=== PATIENT | female | born 1990 | race Caucasian/White ===

== ENCOUNTER 2018-04-27 16:57 | Outpatient (REF) | payer MEDICAID, SELFPAY ==
[2018-04-27 19:36] LABS: HCT 43.2 % (36.0-46.0); HGB 14.9 g/dL (12.0-15.5); Mean Corp. HGB Concentration 34.5 g/dL (32.0-36.0); Mean Corpuscular Volume 92.7 fL (80-95); Mean Platelet Volume 10.4 fL (8.0-11.0); Platelet Count 242 x1000/uL (130-400); RBC 4.66 m/cumm (4.00-5.20); White Blood Cell Count 9.63 k/cumm (4.4-10.8)
[2018-04-27 20:04] LABS: Anion Gap 8.9 mmol/L (3-11); BUN 10 mg/dL (7-18); CO2 27.1 mmol/L (21.0-32.0); CREATININE 0.69 mg/dL (0.55-1.02); Calcium 9.1 mg/dL (8.5-10.1); Chloride 108 mmol/L (98-107); Glucose 97 mg/dL (70-100); Potassium 4.1 mmol/L (3.5-5.1); Sodium 144 mmol/L (136-145); TSH 1.55 uIU/mL (0.358-3.74)
[2018-04-30 13:03] LABS: IgA 37 mg/dL (85-499); Interpretation SEE COMMENTS; Tissue Transglutaminase IgA <1.2 U/mL (<4.0)
== END 2018-04-27 17:17 ==
LOC: NCHCN 16:57
PROVIDERS: PCP Physician Assistant; Visit Provider Nurse Practitioner Family
DX: R00.2 Palpitations (principal); R53.83 Other fatigue
CPT/HCPCS: 80048; 82784; 83516; 85027; 84443

== ENCOUNTER 2019-08-15 22:03 | Outpatient (REF) | payer MEDICAID, SELFPAY ==
[2019-08-18 10:29] LABS: Varicella IgG Antibody Positive (See Note)
== END 2019-08-15 22:23 ==
LOC: NCHCN 22:03
PROVIDERS: PCP Physician Assistant; Visit Provider Internal Medicine
DX: Z13.89 Encounter for screening for other disorder (principal)
CPT/HCPCS: 86787; 87798

== ENCOUNTER 2021-07-19 09:01 | Outpatient (REF) | payer MEDICAID, SELFPAY ==
[2021-07-19 19:54] LABS: Abs Immature Grans 0.03 10^3/uL (0.0-0.06); Absolute Basophil Count 0.03 10^3/uL (0.0-0.2); Absolute Eosinophil Count 0.25 10^3/uL (0.0-0.7); Absolute Lymphocyte Count 2.92 10^3/uL (1.2-3.4); Absolute Monocyte Count 0.52 10^3/uL (0.1-0.8); Absolute Neutrophil Count 4.63 10^3/uL (1.2-6.7); Basophils % 0.4; HCT 40.3 % (36.0-46.0); HGB 13.4 g/dL (11.2-15.7); Immature Grans % 0.4; Lymphocytes % 34.8; MCH 31.8 pg (27.0-33.0); MCHC 33.3 % (32.0-36.0); MCV 95.5 fL (80-95); MPV 10.8 fL (8.0-11.0); Monocytes % 6.2; Neutrophils % 55.2; Platelet Count 190 10^3/uL (130-400); RBC 4.22 10^6/uL (3.93-5.22); RDW 13.1 % (11.7-14.6); RDW-SD 46.1 fL; WBC 8.38 10^3/uL (4.4-10.8)
[2021-07-19 20:10] LABS: ALT 25 U/L (14-59); AST 10 U/L (15-37); Albumin 4.3 g/dL (3.4-5.0); Alkaline Phosphatase 82 U/L (46-116); Anion Gap 9.8 mmol/L (3-11); BUN 16 mg/dL (7-18); Bilirubin, Total 0.6 mg/dL (0.2-1.0); CO2 25.2 mmol/L (21.0-32.0); CREATININE 0.6 mg/dL (0.55-1.02); Calcium 8.5 mg/dL (8.5-10.1); Calculated LDL 75 mg/dL (<100); Chloride 109 mmol/L (98-107); Cholesterol 132 mg/dL (<200); Glucose 93 mg/dL (74-106); HDL Cholesterol 51 mg/dL (40-60); Sodium 144 mmol/L (136-145); Total Protein 6.6 g/dL (6.4-8.2); Triglyceride 31 mg/dL (<150)
== END 2021-07-19 09:02 | disposition home or self-care (01) ==
LOC: NCHCN 09:01
PROVIDERS: PCP Physician Assistant; Visit Provider Physician Assistant
DX: R53.83 Other fatigue (principal); R42 Dizziness and giddiness; R00.2 Palpitations; Z13.220 Encounter for screening for lipoid disorders
CPT/HCPCS: 80053; 80061; 85025

== ENCOUNTER 2021-07-26 09:40 | Outpatient (REF) | payer MEDICAID, SELFPAY ==
[2021-07-26 19:38] LABS: TSH (W/Ref FT4) 1.33 uIU/mL (0.36-3.74)
== END 2021-07-26 09:41 | disposition home or self-care (01) ==
LOC: NCHCN 09:40
PROVIDERS: PCP Physician Assistant; Visit Provider Physician Assistant
DX: R00.2 Palpitations (principal)
CPT/HCPCS: 84443

== ENCOUNTER 2022-01-02 17:14 | Outpatient (REF) | payer MEDICAID, SELFPAY ==
[2022-01-02 19:09] LABS: HCT 42.7 % (36.0-46.0); HGB 14.9 g/dL (11.2-15.7); MCH 32.5 pg (27.0-33.0); MCHC 34.9 % (32.0-36.0); MCV 93 fL (80-95); MPV 10.6 fL (8.0-11.0); Platelet Count 203 10^3/uL (130-400); RBC 4.59 10^6/uL (3.93-5.22); RDW 12.3 % (11.7-14.6); RDW-SD 42.4 fL; WBC 7.59 10^3/uL (4.4-10.8)
[2022-01-02 19:17] LABS: C-Reactive Protein < 0.05 mg/dL (0.0-0.3); ESR < 1 mm/hr (0-20)
[2022-01-03 18:55] LABS: Rheumatoid Factor <8.6 IU/mL (<12.0)
[2022-01-05 17:19] LABS: Anaplasma phagocytophilum Negative (Negative); B. miyamotoi PCR Negative (Negative); Babesia divergens/MO-1 Negative (Negative); Babesia duncani Negative (Negative); Babesia microti Negative (Negative); Ehrlichia chaffeensis Negative (Negative); Ehrlichia ewingii/canis Negative (Negative); Ehrlichia muris eauclairensis Negative (Negative)
[2022-01-06 09:51] LABS: Lyme Ab w Rflx to Lyme Confirm Negative (Negative)
[2022-01-06 15:07] LABS: ANA Interpretation Positive (Negative); ANA Titer Pattern 1:80 Homogeneous
== END 2022-01-02 17:15 | disposition home or self-care (01) ==
LOC: NCHCN 17:14
PROVIDERS: PCP Physician Assistant; Visit Provider Nurse Practitioner Family
DX: G89.29 Other chronic pain (principal)
CPT/HCPCS: 85027; 85652; 87798; 86038; 86140; 86431; 86618

== ENCOUNTER 2024-05-05 18:54 | Emergency (ER) | payer MEDICAID, SELFPAY ==
[2024-05-05] VITALS (31 sets, daily range): BP systolic 87–113; BP diastolic 44–79; PULSE 66–98; RESP 12–23; O2SAT 96–100
--- NOTE | 2024-05-05 18:45 | RT.EKG_ITS ---
APPROVED REPORT Exam: Resting ECG Reason for Exam: chest pain Patient Location: E HR:78 bpm ECG Measurements Heart Rate 78 AXIS NE 127 P 61 QRSd 82 QRS 62 QT 349 T 37 QTc 398 Conclusion Sinus rhythm...normal P axis, V-rate 60- 99
--- NOTE | 2024-05-05 19:45 | DI.RAD_ITS ---
Exam(s) XR CHEST 2V PA LATERAL EXAM: XR CHEST 2V PA LATERAL CLINICAL HISTORY: shortness of breath, cough TECHNIQUE: 2D digital imaging was performed of the chest. Two images were obtained. PA and lateral views were obtained. COMPARISON: No exams were available for comparison FINDINGS: MEDIASTINUM: Normal. HEART: Normal. PULMONARY VASCULATURE: Normal. LUNGS: Clear. PLEURAL SPACE: No pleural effusion or pneumothorax. BONE:Within normal limits for the patient's age. OTHER FINDINGS:Normal. IMPRESSION: No acute pulmonary findings. DATA REPOSITORY: RADIATION DOSE DELIVERED:
[2024-05-05 20:18] LABS: Abs Immature Grans 0.01 10^3/uL (0.0-0.06); Absolute Basophil Count 0.03 10^3/uL (0.0-0.2); Absolute Eosinophil Count 0.06 10^3/uL (0.0-0.7); Absolute Lymphocyte Count 2.38 10^3/uL (1.2-3.4); Absolute Monocyte Count 0.45 10^3/uL (0.1-0.8); Absolute Neutrophil Count 4.22 10^3/uL (1.2-6.7); Basophils % 0.4 %; Eosinophils % 0.8 %; HCT 41.3 % (36.0-46.0); HGB 13.9 g/dL (11.2-15.7); Immature Grans % 0.1 %; Lymphocytes % 33.3 %; MCH 32.2 pg (27.0-33.0); MCHC 33.7 % (32.0-36.0); MCV 96 fL (80-95); MPV 9.5 fL (8.0-11.0); Monocytes % 6.3 %; Neutrophils % 59.1 %; Platelet Count 200 10^3/uL (130-400); RBC 4.32 10^6/uL (3.93-5.22); RDW 12.2 % (11.7-14.6); WBC 7.15 10^3/uL (4.4-10.8)
[2024-05-05 20:35] LABS: HCG Qual (Serum) Negative
[2024-05-05 20:37] LABS: Troponin I 7 ng/L (<or=51)
[2024-05-05 20:40] LABS: COVID-19 PCR Negative (Negative); Influenza A PCR Negative (Negative); Influenza B PCR Negative (Negative); RSV PCR Negative (Negative); Source NASOPHARYNX
[2024-05-05 20:41] LABS: ALT 25 U/L (14-59); AST 12 U/L (15-37); Albumin 4.2 g/dL (3.4-5.0); Alkaline Phosphatase 66 U/L (46-116); Anion Gap 3.6 mmol/L (3-11); BUN 6 mg/dL (7-18); Bilirubin, Total 1.36 mg/dL (0.2-1.0); CO2 30.4 mmol/L (21.0-32.0); CREATININE 0.8 mg/dL (0.55-1.02); Calcium 8.8 mg/dL (8.5-10.1); Chloride 109 mmol/L (98-107); Estimated GFR 99.71 (mL/min/1.73m2); Glucose 95 mg/dL (74-106); Lipase 24 U/L (<78); Magnesium 1.9 mg/dL (1.8-2.4); Potassium 3.8 mmol/L (3.5-5.1); Sodium 143 mmol/L (136-145); Total Protein 6.7 g/dL (6.4-8.2)
[2024-05-05 20:46] LABS: D-Dimer 152 ng/mlFEU (<500)
--- NOTE | 2024-05-05 21:31 | DI.VRAD_ITS ---
PROCEDURE INFORMATION: Exam: XR Chest Exam date and time: 05/05/2024 8:56 PM Age: 34 years old Clinical indication: Cough and shortness of breath TECHNIQUE: Imaging protocol: Radiologic exam of the chest. Views: 2 views. COMPARISON: No relevant prior studies available. FINDINGS: Lungs: No alveolar infiltrate. Pleural spaces: No pleural fluid collection. No pneumothorax. Heart/Mediastinum: Normal heart size. Bones/joints: Unremarkable for patient age. IMPRESSION: No active pulmonary disease. Dictated and Authenticated by: Juan Herring MD. Orderin Herberth Amezquita MD
--- OUTSIDE RECORDS SUMMARY | 2024-05-05 21:38 | XMS_ITS | Continuity of Care Document ---
Author Organization [facility] Address [address] [place] [address] Care Team Providers Care Management Retail Intern Name Role Phone [facility] Primary [facility] Physician Encounter [id number] Date(s): 02/02/24 - 02/02/[address] [id number] Discharge Disposition: Home or Self Care Attending Physician: Manjinder Louis Admitting Physician: Manjinder Louis Referring Physician: Manjinder Louis Allergies, Adverse Reactions, Alerts Substance Criticality Severity Reaction Reaction Severity Status EGG Unable to assess criticality Unknown Active acetaminophen-oxycod one Unable to assess criticality Unknown Active Immunizations Given and Recorded Vaccine Date Status Refusal Reason SARS-CoV-2 (COVID-19) mRNA-1273 vaccine 09/06/20 R ecorded influenza virus vaccine, live 01/29/17 Recorded tetanus/diphth/pertuss (Tdap) adult/adol 05/25/15 Recorded tetanus/diphth/pertuss (Tdap) adult/adol 04/20/12 Recorded Procedures Procedure Date Related Diagnosis Body Site Status Due 02/2022 1 02/27/19 Completed 1Pap Due - 02/2022 09/22/06, 10/28/07, 08/10/12, 08/24/15 - WNL; 02/28/19 - Neg Results Laboratory List Name Date D-Dimer 02/02/24 Most recent to oldest [Reference Range]: 1 D Dimer, (Quant.) [0.00-0.50 mg/L] 0.25 mg/L 1 (02/02/24 10:00 AM) 1Interpretive Data: Exclusion of PE: Effective December 24, 2011 a new D-Dimer assay [INNOVANCE] is being implemented, this test has a new reference range <0.50 mg/L FEU. This assay was evaluated in a multi-center study to validate the exclusion of PE using fresh specimens collected from 701 consecutive patients presenting in the ED with suspected PE. Study patients were evaluated using the Wells' rules to estimate high, moderate or low probability of PE, a D-Dimer result of <0.50 mg/L FEU was considered negative and a D-Dimer result >/= 0.50 was considered positive for PE. Social History Social History Type Response Tobacco Current everyday tob acco user Tobacco Use:. 1/2 ppd per day. Sex Female Sex Representation Female (finding) Patient Care team information Care Team Personnel Name: [facility] Position: No Access Member Role: Primary Care Physician Address: [facility] [address] [place] [address]- [facility] Position: Physician Member Role: Informed Provider Address: [address] [place] [address] [place] [address]- Care Team Related Persons Name: BRODERICK SANTOS Name: ALEX SANTOS Insurance Providers Guarantor name: EDNA Inman [facility] Information #: 2 Payer: SELF EMPLOYED Member Number: NA Policy Number: NA
--- OUTSIDE RECORDS SUMMARY | 2024-05-05 21:38 | XMS_ITS | Continuity of Care Document ---
Author Organization [facility] Address [address] [place] [address] Care Team Providers Care Transfer Car Operator Drier Name Role Phone Dali Hood Primary Care Physician Encounter [facility] Date(s): 05/04/24 - 05/04/[address] [address] Encounter Diagnosis Palpitations(Discharge Diagnosis) - 05/04/24 Near syncope(Discharge Diagnosis) - 05/04/24 Discharge Disposition: Home or Self Care Attending Physician: Tayler Roman MD Admitting Physician: Tayler Roman MD Referring Physician: Tayler Roman MD Encounter Type: Emergency Allergies, Adverse Reactions, Alerts Substance Criticality Severity Reaction Reaction Severity Status EGG Unable to assess criticality Unknown Active acetaminophen-oxycod one Unable to assess criticality Unknown Active Assessment and Plan Extracted from: Title:ED Provider Note Author:Juan Alberto Schmitz MD Date:05/04/24 Assessment/Plan 1.??Palpitations??R00.2 2.??Near syncope??R55 Orders: Echocardiogram Complete, 05/04/24 12:58:00 EST, Palpitations, Stop date 05/04/24 12:58:00 EST Event Monitor, 05/04/24, ABEL, Palpitations, Ambulatory, Patient has IV, Order for future visit, Once Patient Education Near-Syncope, Mpmk-[id number] Palpitations Follow Up With When Contact Information Dali Hood FINANCIAL SYSTEMS MANAGER Within 1 week [facility] [address] [place] [address] [place] [address] ?? Additional Instructions: Future Appointments Immunizations Given and Recorded Vaccine Date Status Refusal Reason SARS-CoV-2 (COVID-19) mRNA-0760 vaccine 09/06/20 R ecorded influenza virus vaccine, live 01/29/17 Recorded tetanus/diphth/pertuss (Tdap) adult/adol 05/25/15 Recorded tetanus/diphth/pertuss (Tdap) adult/adol 04/20/12 Recorded Medications Wellbutrin 300 mg =, Oral, Daily, 0 Refill(s) Start Date: 05/04/24 Status: Ordered Repeat number: 1 Procedures Procedure Date Related Diagnosis Body Site Status Due 02/2022 1 02/27/19 Completed 1Pap Due - 02/2022 09/22/06, 10/28/07, 08/10/12, 08/24/15 - WNL; 02/28/19 - Neg Results Laboratory List Name Date CBC w/ Diff 05/04/24 Comprehensive Metabolic Panel 05/04/24 Thyroid Stimulating Hormone (TSH) 5 Troponin-I 05/04/24 Automated Diff 05/04/24 Most recent to oldest [Reference Range]: 1 WBC [5.0-10.0 x10^3/mcL] 5.8 x10^3/mcL (05/04/24 11:49 AM) RBC [4.1-5.3 x10^6/mcL] 4.5 x10^6/mcL (05/04/24 11:49 AM) Neutro Auto [40.0-75.0 %] 63.9 % (05/04/24 11:49 AM) Lymph Auto [20.0-50.0 %] 28.8 % (05/04/24 11:49 AM) [place] Auto [2.0-15.0 %] 6.4 % (05/04/24 11:49 AM) Basophil Auto [0.0-1.0 %] 0.3 % (05/04/24 11:49 AM) BUN [7-18 mg/dL] 8 mg/dL (05/04/24 11:49 AM) Glucose Level [74-106 mg/dL] 104 mg/dL (05/04/24 11:49 AM) Potassium Level [3.5-5.1 mmol/L] 4.4 mmo l/L (05/04/24 11:49 AM) MCV [80.0-96.0 fL] 94.0 fL (05/04/24 11:49 AM) AST [15-37 unit/L] 17 unit/L (05/04/24 11:49 AM) ALT [14-59 unit/L] 23 unit/L (05/04/24 11:49 AM) MCHC [31.0-35.0 g/dL] 34.3 g/dL (05/04/24 11:49 AM) Troponin-I [0.0-51.4 pg/mL] <5.0 pg/mL (05/04/24 11:49 AM) Sodium Level [136-145 mmol/L] 139 mmol/L (05/04/24 11:49 AM) Hct [37.0-47.0 %] 42.0 % (05/04/24 11:49 AM) Calcium Level [8.5-10.1 mg/dL] 8.9 mg/dL (05/04/24 11:49 AM) Albumin Level [3.4-5.0 g/dL] 4.2 g/dL (05/04/24 11:49 AM) Protein Total [6.4-8.2 g/dL] 6.9 g/dL (05/04/24 11:49 AM) MCH [26.0-32.0 pg] 32.2 pg *HI* (05/04/24 11:49 AM) Neutro Absolute 3.7 x10^3/mcL *NA* (05/04/24 11:49 AM) Bilirubin Total [0.2-1.0 mg/dL] 1.8 mg/d L *HI* (05/04/24 11:49 AM) Hgb [12.0-16.0 g/dL] 14.4 g/dL (05/04/24 11:49 AM) Alk Phos [46-146 unit/L] 59 unit/L (05/04/24 11:49 AM) Platelets [130-450 x10^3/mcL] 203 x10^3/ mcL (05/04/24 11:49 AM) CO2 [21-32 mmol/L] 28 mmol/L (05/04/24 11:49 AM) TSH [0.358-3.740 mcIntlUnit/mL] 1.050 mc IntlUnit/mL (05/04/24 11:49 AM) eGFR Non-AA [>=60] 89 (05/04/24 11:49 AM) eGFR AA [>=60] 89 (05/04/24 11:49 AM) Chloride Level [98-107 mmol/L] 105 mmol/ L (05/04/24 11:49 AM) RDW-CV [11.5-14.5 %] 12.3 % (05/04/24 11:49 AM) Imm Gran Auto [0.0-0.9 %] 0.3 % (05/04/24 11:49 AM) Creatinine Level [0.55-1.02 mg/dL] 0.88 mg/dL (05/04/24 11:49 AM) Eos, Auto [1.0-6.0 %] 0.3 % *LOW* (05/04/24 11:49 AM) Vital Signs Most recent to oldest [Reference Range]: 1 2 Temperature Temporal Artery [36-38 Deg C ] 36.5 Deg C (05/04/24 11:27 AM) Peripheral Pulse Rate [60-100 bpm] 87 bp m (05/04/24 12:59 PM) 100 bpm (05/04/24 11:27 AM) Respiratory Rate [12-24 br/min] 22 br/mi n (05/04/24 12:59 PM) 16 br/min (05/04/24 11:27 AM) Blood Pressure [90-120/60-80 mmHg] 104/9 9mmHg (05/04/24 12:59 PM) 114/74mmHg (05/04/24 11:27 AM) Mean Arterial Pressure, Cuff [65-140 mmH g] 87 mmHg (05/04/24 11:27 AM) Weight Estimated 76.20 kg (05/04/24 11:27 AM) Body Mass Index Estimated 28.84 kg/m2 (05/04/24 11:27 AM) Height/Length Estimated 162.56 cm (05/04/24 11:27 AM) Social History Social History Type Response Tobacco Current everyday tob acco user Tobacco Use:. 1/2 ppd per day. Sex Female Sex Representation Female (finding) Hospital Discharge Instructions Patient Education 05/04/2024 12:08:12 Near-Syncope, [id number]-[id number] Near-Syncope Near-syncope is when you suddenly feel like you might pass out or faint. This may also be called presyncope. During an episode of near-syncope, you may: ??? Feel dizzy, weak, or light-headed. It may feel like the room is spinning. ??? Feel like you may vomit (nauseous). ??? See spots or see all white or all black. ??? Have cold, clammy skin. ??? Feel warm and sweaty. ??? Hear ringing in your ears. This condition is caused by a sudden decrease in blood flow to the brain. This can result from manycauses, but most of those causes are not dangerous. However, near-syncope may be a sign of a serious medical problem, so it is important to seek medical care. Follow these instructions at home: Medicines ??? Take hveh-mno-ofuybtj and prescription medicines only as told by your doctor. ??? If you are taking blood pressure or heart medicine, get up slowly and spend many minutes getting ready to sit and then stand. This can help with dizziness. Lifestyle ??? Do not drive, use machinery, or play sports until your doctor says it is okay. ??? Do not drink alcohol. ??? Do not smoke or use any products that contain nicotine or tobacco. If you need help quitting, ask your doctor. ??? Avoid hot tubs and saunas. General instructions ??? Be aware of any changes in your symptoms. ??? Talk with your doctor about your symptoms. You may need to have testing to help find the cause. ??? If you start to feel like you might pass out, sit or lie down right away. If sitting, lower your head down between your legs. If lying down, raise (elevate) your feet above the level of your heart. ??? Breathe deeply and steadily. Wait until all of the symptoms are gone. ??? Have someone stay with you until you feel better. ??? Drink enough fluid to keep your pee (urine) pale yellow. ??? Avoid standing for a long time. If you must stand for a long time, do movements such as: ??? Moving your legs. ??? Crossing your legs. ??? Flexing and stretching your leg muscles. ??? Squatting. ??? Keep all follow-up visits. Contact a doctor if: ??? You continue to have episodes of near fainting. Get help right away if: ??? You pass out or faint. ??? You have any of these symptoms: ??? Fast or uneven heartbeats (palpitations). ??? Pain in your chest, belly, or back. ??? Shortness of breath. ??? You have a seizure. ??? You have a very bad headache. ??? You are confused. ??? You have trouble seeing. ??? You are very weak. ??? You have trouble walking. ??? You are bleeding from your mouth or butt. ??? You have black or tarry poop (stool). These symptoms may be an emergency. Get help right away. Call your local emergency services (911 int [place] ??? Do not wait to see if the symptoms will go away. ??? Do not drive yourself to the hospital. Summary ??? Near-syncope is when you suddenly feel like you might pass out or faint. ??? This condition is caused by a sudden decrease in blood flow to the brain. ??? Near-syncope may be a sign of a serious medical problem, so it is important to seek medical care. ??? If you start to feel like you might pass out, sit or lie down right away. If sitting, lower your head down between your legs. If lying down, raise (elevate) your feet above the level of your heart. ??? Talk with your doctor about your symptoms. You may need to have testing to help find the cause. This information is not intended to replace advice given to you by your health care provider. Make sure you discuss any questions you have with your health care provider. Document Revised: 08/01/2021 Document Reviewed: 08/01/2021 [employer] Patient Education ?? 2022 [employer] 05/04/2024 12:08:06 Palpitations Palpitations Palpitations are feelings that your heartbeat is irregular or is faster than normal. It may feel like your heart is fluttering or skipping a beat. Palpitations may be caused by many things, includingsmoking, caffeine, alcohol, stress, and certain medicines or drugs. Most causes of palpitations arenot serious. However, some palpitations can be a sign of a serious problem. Further tests and a thorough medicalhistory will be done to find the cause of your palpitations. Your provider may order tests such as an ECG, labs, an echocardiogram, or an ambulatory continuous ECG monitor. Follow these instructions at home: Pay attention to any changes in your symptoms. Let your health care provider know about them. Take these actions to help manage your symptoms: Eating and drinking Follow instructions from your health care provider about eating or drinking restrictions. You may need to avoid foods and drinks that may cause palpitations. These may include: ??? Caffeinated coffee, tea, soft drinks, and energy drinks. ??? Chocolate. ??? Alcohol. ??? Diet pills. Lifestyle ??? Take steps to reduce your stress and anxiety. Things that can help you relax include: ??? Yoga. ??? Mind-body activities, such as deep breathing, meditation, or using words and images to create positive thoughts (guided imagery). ??? Physical activity, such as swimming, jogging, or walking. Tell your health care provider if your palpitations increase with activity. If you have chest pain or shortness of breath with activity, do not continue the activity until you are seen by your health care provider. ??? Biofeedback. This is a method that helps you learn to use your mind to control things in your body, such as your heartbeat. ??? Get plenty of rest and sleep. Keep a regular bed time. ??? Do not use drugs, including cocaine or ecstasy. Do not use marijuana. ??? Do not use any products that contain nicotine or tobacco. These products include cigarettes, chewing tobacco, and vaping devices, such as e-cigarettes. If you need help quitting, ask your health care provider. General instructions ??? Take knte-gtx-tvdvtev and prescription medicines only as told by your health care provider. ??? Keep all follow-up visits. This is important. These may include visits for further testing if palpitations do not go away or get worse. Contact a health care provider if: ??? You continue to have a fast or irregular heartbeat for a long period of time. ??? You notice that your palpitations occur more often. Get help right away if: ??? You have chest pain or shortness of breath. ??? You have a severe headache. ??? You feel dizzy or you faint. These symptoms may represent a serious problem that is an emergency. Do not wait to see if the symptoms will go away. Get medical help right away. Call your local emergency services (911 in the [place] Do not drive yourself to the hospital. Summary ??? Palpitations are feelings that your heartbeat is irregular or is faster than normal. It may feel like your heart is fluttering or skipping a beat. ??? Palpitations may be caused by many things, including smoking, caffeine, alcohol, stress, certain medicines, and drugs. ??? Further tests and a thorough medical history may be done to find the cause of your palpitations. ??? Get help right away if you faint or have chest pain, shortness of breath, severe headache, or dizziness. This information is not intended to replace advice given to you by your health care provider. Make sure you discuss any questions you have with your health care provider. Document Revised: 08/14/2021 Document Reviewed: 08/14/2021 [employer] Patient Education ?? 2022 [employer]. Follow Up Care 05/04/2024 11:09:56 With:Dali Hood APRN Address: [facility] [address] [address]- When:1 week Physician Emergency department Note * Juan Alberto Schmitz MD: PERFORM Event Display: ED Note Physician Authored Date: [id number] EDNA JUAREZ :1990 Age:34 years Sex:Female Visit Date:05/04/2024 Primary Care Physician: Dali Hood APRN Basic Information Time Seen: Juan Alberto Schmitz MD / 05/04/2024 11:14 Chief Complaint Pt states she had a near syncopal episode at work [employer]. ??Has had intermittent palpatatgions for 2 months. 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 Patient states that for the last 2 months intermittently??and randomly she would get the sensation of fluttering sensation in her heart.?? She never passed out. ??No chest pain??or shortness of breath??or diaphoresis.?? This morning at rest??she had??spell of palpitation, another nurse at the [facility] facility listen to her heart??and told her it was irregular.?? Eventually subsided on its own about 5 minutes later. ??She felt warm and flushed and felt like she could pass out but she did not.?? No headache.?? No abdominal pain, no URI symptoms or GI symptoms.?? Denies possibility of .?? Because of the spells she has seen her primary care provider??Dali Hood Oralia believe works in [facility] and she was set up for an event monitor on 21 April.?? However after??3 days she took it off because she felt that the device was irritating her skin.?? She did have a few spells when she had a dog but she has not gotten the results yet.?? She is feeling fine here. ??She did not have breakfast but does not unusual for her. ??She had taken some fluids. ??She does not use any caffeine has not taken any cold medicine such as Sudafed.?? She reports??one of her parents has A-fib and is anticoagulated??and is ondiltiazem.?? She also reports she was supposed to be referred to cardiology here to get an echocardiogram??but this has not taken place yet. Review of Systems: Per HPI Physical Exam Vitals & Measurements T:??36.5?C ??(Temporal Artery)?? HR:??87??(Peripheral)?? RR:??22?? BP:??104/99?? SpO2:??97%?? HT:??162.56??cm?? WT:??76.20??kg??(Estimated)?? BMI:??28.84?? O2 Therapy:??Room air?? General:??alert,??no acute distress. Skin:??warm,??dry. Head:??no??trauma,??normocephalic. Neck:??trachea??midline,? Eye:??normal??conjunctiva, sclera??clear. Cardiovascular:??regular??rate and rhythm,??normal??peripheral perfusion.?? No gallop no murmur Respiratory: lungs??CTA, respirations??non-labored. Chest wall:??no??deformity. Gastrointestinal:??soft,??non distended,??no??tenderness,??no??guarding. Extremities:??no??deformity,??no??trauma.?? No swelling no signs of DVT Neurological:?LOC??appropriate for age,?speech??normal. Psychiatric:??cooperative, affect??flat Medical Decision Making: Medical Decision-Making: Clinical lab tests: ordered and reviewed -??Yes ?? Tests in the medicine section of CPT??: ordered and reviewed -??Yes ?? Review and summarize past medical records -??Yes ?? Independent visualization of images, tracings, or specimens? Yes ?? The patient was in normal sinus rhythm throughout her stay in the ER with no recurrent symptoms.?? Differential diagnosis includes paroxysmal A-fib, SVT, PVCs, do not think it is V. tach, she denies any anxiety. ??No signs of electrolyte anomaly.?? Here I put in an order for an echocardiogram that was??a contingency plan from her PCP??she could not tolerate the Zio patch but will try with an event monitor 30-day.?? I put in a follow-up order with cardiology which was also??contingency plan fromher PCP.?? Otherwise discharged in stable condition ?? Last 24 Hours?? Chemistry ? Event Name?? Event Result?? Date/Time?? Sodium Level 139 mmol/L 05/04/24 11:49:04 Potassium Level 4.4 mmol/L 05/04/24 11:49:04 Chloride Level 105 mmol/L 05/04/24 11:49:04 CO2 28 mmol/L 05/04/24 11:49:04 Alk Phos 59 unit/L 05/04/24 11:49:04 AST 17 unit/L 05/04/24 11:49:04 ALT 23 unit/L 05/04/24 11:49:04 BUN 8 mg/dL 05/04/24 11:49:04 Glucose Level 104 mg/dL 05/04/24 11:49:04 Creatinine Level 0.88 mg/dL 05/04/24 11:49:04 eGFR AA 89 05/04/24 11:49:04 eGFR Non-AA 89 05/04/24 11:49:04 Calcium Level 8.9 mg/dL 05/04/24 11:49:04 Protein Total 6.9 g/dL 05/04/24 11:49:04 Albumin Level 4.2 g/dL 05/04/24 11:49:04 Bilirubin Total 1.8 mg/dL??High 05/04/24 11:49:04 Troponin-I <5.0 05/04/24 11:49:04 TSH 1.05 mcIntlUnit/mL 05/04/24 11:49:04 ? Hematology ? Event Name?? Event Result?? Date/Time?? WBC 5.8 x10^3/mcL 05/04/24 11:49:04 RBC 4.5 x10^6/mcL 05/04/24 11:49:04 Hgb 14.4 g/dL 05/04/24 11:49:04 Hct 42 % 05/04/24 11:49:04 MCV 94 fL 05/04/24 11:49:04 MCH 32.2 pg??High 05/04/24 11:49:04 MCHC 34.3 g/dL 05/04/24 11:49:04 RDW-CV 12.3 % 05/04/24 11:49:04 Platelets 203 x10^3/mcL 05/04/24 11:49:04 Neutro Auto 63.9 % 05/04/24 11:49:04 Lymph Auto 28.8 % 05/04/24 11:49:04 [place] Auto 6.4 % 05/04/24 11:49:04 Eos, Auto 0.3 %??Low 05/04/24 11:49:04 Basophil Auto 0.3 % 05/04/24 11:49:04 Imm Gran Auto 0.3 % 05/04/24 11:49:04 Neutro Absolute 3.7 x10^3/mcL 05/04/24 11:49:04 ? Procedure No Qualifying Data Assessment/Plan 1.??Palpitations??R00.2 2.??Near syncope??R55 Orders: Echocardiogram Complete, 05/04/24 12:58:00 EST, Palpitations, Stop date 05/04/24 12:58:00 EST Event Monitor, 05/04/24, ABEL, Palpitations, Ambulatory, Patient has IV, Order for future visit, Once Patient Education Near-Syncope, Ifow-fy-Ueoq Palpitations Follow Up With When Contact Information Dali Hood APRN Within 1 week [facility] [address] [place] [address] [place] [address]- Additional Instructions: Medication Reconciliation Unchanged buPROPion (Wellbutrin)300 Milligrams Oral (given by mouth) every day. Problem List/Past Medical History Ongoing No qualifying data Historical Procedure/Surgical History ???Due 02/2022 (02/28/2019) Allergies EGG acetaminophen-oxycodone Social History Electronic Cigarette/Vaping Electronic Cigarette Use: Never. Sexual Other contraceptive use: Mirena 08/20/20. Tobacco Current everyday tobacco user Tobacco Use:. 1/2 ppd per day. Diagnostic Results ECG EKG shows sinus rhythm??with no ischemic changes. Lab Results CBC and Differential?? LATEST RESULTS?? HISTORICAL RESULTS?? WBC?? 05/04/24 11:49?? 5.8?? 02/23/24?? 7.9?? RBC?? 05/04/24 11:49?? 4.5?? 02/23/24?? 4.4?? Hgb?? 05/04/24 11:49?? 14.4?? 02/23/24?? 14.0?? Hct?? 05/04/24 11:49?? 42.0?? 02/23/24?? 40.4?? MCV?? 05/04/24 11:49?? 94.0?? 02/23/24?? 92.4?? MCH?? 05/04/24 11:49?? 32.2 ??High?? 02/23/24?? 32.0?? MCHC?? 05/04/24 11:49?? 34.3?? 02/23/24?? 34.7?? RDW-CV?? 05/04/24 11:49?? 12.3?? 02/23/24?? 12.4?? Platelets?? 05/04/24 11:49?? 203?? 02/23/24?? 206?? Neutro Auto?? 05/04/24 11:49?? 63.9?? 02/23/24?? 69.8?? Lymph Auto?? 05/04/24 11:49?? 28.8?? 02/23/24?? 23.2?? [place] Auto?? 05/04/24 11:49?? 6.4?? 02/23/24?? 5.3?? Eos, Auto?? 05/04/24 11:49?? 0.3 ??Low?? 02/23/24?? 0.9 ??Low?? Basophil Auto?? 05/04/24 11:49?? 0.3?? 02/23/24?? 0.5?? Imm Gran Auto?? 05/04/24 11:49?? 0.3?? 02/23/24?? 0.3?? Neutro Absolute?? 05/04/24 11:49?? 3.7?? 02/23/24?? 5.5? Routine Chemistry?? LATEST RESULTS?? HISTORICAL RESULTS?? Sodium Level?? 05/04/24 11:49?? 139?? 02/23/24?? 142?? Potassium Level?? 05/04/24 11:49?? 4.4?? 02/23/24?? 4.6?? Chloride Level?? 05/04/24 11:49?? 105?? 02/23/24?? 106?? CO2?? 05/04/24 11:49?? 28?? 02/23/24?? 29?? Alk Phos?? 05/04/24 11:49?? 59?? 02/23/24?? 83?? AST?? 05/04/24 11:49?? 17?? 02/23/24?? 12 ??Low?? ALT?? 05/04/24 11:49?? 23?? 02/23/24?? 22?? BUN?? 05/04/24 11:49?? 8?? 02/23/24?? 9?? Glucose Level?? 05/04/24 11:49?? 104?? 02/23/24?? 84?? Creatinine Level?? 05/04/24 11:49?? 0.88?? 02/23/24?? 0.75?? eGFR AA?? 05/04/24 11:49?? 89?? 02/23/24?? 108?? eGFR Non-AA?? 05/04/24 11:49?? 89?? 02/23/24?? 108?? Calcium Level?? 05/04/24 11:49?? 8.9?? 02/23/24?? 9.3?? Protein Total?? 05/04/24 11:49?? 6.9?? 02/23/24?? 7.1?? Albumin Level?? 05/04/24 11:49?? 4.2?? 02/23/24?? 4.4?? Bilirubin Total?? 05/04/24 11:49?? 1.8 ??High?? 02/23/24?? 1.1 ??High? Cardiac Isoenzymes?? LATEST RESULTS?? Troponin-I?? 05/04/24 11:49?? <5.0? Thyroid Studies?? LATEST RESULTS?? HISTORICAL RESULTS?? TSH?? 05/04/24 11:49?? 1.050?? 01/21/24?? 1.128? Electronically Signed on 05/04/2024 13:09 EST Juan Alberto Schmitz MD Emergency department Discharge instructions * Juan Alberto Schmitz MD: PERFORM Event Display: ED Discharge Information Authored Date: [id number] EDNA JUAREZ :1990 Age:34 years Sex:Female Visit Date:05/04/2024 Primary Care Physician: Dali Hood APRN Discharge Instructions We would like to thank you for allowing us to assist you with your healthcare needs. The following includes patient education materials and information regarding your injury/illness. Diagnosis from Today's Visit Palpitations Near syncope Discharge Vitals Temperature??(Temporal Artery) 97.7 ??F (36.5 ??C) Heart Rate??(Peripheral) 87 Respiratory Rate?? 22 Blood Pressure?? 104/99?? SpO2?? 97% Height?? 64.00 in (162.56 cm) Weight??(Estimated) 168.02 lb (76.20 kg) BMI?? 28.84 Allergies EGG acetaminophen-oxycodone What to Do Next Instructions from Your Care Team The department of cardiology should be calling you to set up an echocardiogram. ??He can also call them at [phone].?? You should also get a call for follow- up with cardiology??Dr. Zafar Gandara.??Wear the event monitor as arranged. You Need to Schedule the Following Appointments Follow Up with??Dali Hood APRN When:??Within 1 week Where: [facility] [address] [place] [address] [place] [address]- Upcoming Scheduled Appointments Thursday 11:15 AM EDT ?? With: Ava Shields TEXTILE BAG SEWER Where: [facility] [address] [place] [address] Status: Confirmed Future Orders Event Monitor, 05/04/24, ABEL, Palpitations, Ambulatory, Patient has IV, Order for future visit, Once You were treated today on an emergency basis; it may be kinsey to contact your primary care provider to notify them of your visit today. You may have been referred to your regular doctor or a specialist, please follow up as instructed. If your condition worsens or you can't get in to see the doctor, contact the Emergency Department. Medications What How Much When Instructions Next Dose Unchanged buPROPion (Wellbutrin) 300 Milligrams Oral (given by mouth) Every day Education Materials Near-Syncope Near-syncope is when you suddenly feel like you might pass out or faint. This may also be called presyncope. During an episode of near-syncope, you may: ? Feel dizzy, weak, or light-headed. It may feel like the room is spinning. ? Feel like you may vomit (nauseous). ? See spots or see all white or all black. ? Have cold, clammy skin. ? Feel warm and sweaty. ? Hear ringing in your ears. This condition is caused by a sudden decrease in blood flow to the brain. This can result from manycauses, but most of those causes are not dangerous. However, near-syncope may be a sign of a serious medical problem, so it is important to seek medical care. Follow these instructions at home: Medicines ? Take uull-wwo-sbxpwdu and prescription medicines only as told by your doctor. ? If you are taking blood pressure or heart medicine, get up slowly and spend many minutes getting ready to sit and then stand. This can help with dizziness. Lifestyle ? Do not drive, use machinery, or play sports until your doctor says it is okay. ? Do not drink alcohol. ? Do not smoke or use any products that contain nicotine or tobacco. If you need help quitting, ask your doctor. ? Avoid hot tubs and saunas. General instructions ? Be aware of any changes in your symptoms. ? Talk with your doctor about your symptoms. You may need to have testing to help find the cause. ? If you start to feel like you might pass out, sit or lie down right away. If sitting, lower your head down between your legs. If lying down, raise (elevate) your feet above the level of your heart. ? Breathe deeply and steadily. Wait until all of the symptoms are gone. ? Have someone stay with you until you feel better. ? Drink enough fluid to keep your pee (urine) pale yellow. ? Avoid standing for a long time. If you must stand for a long time, do movements such as: ? Moving your legs. ? Crossing your legs. ? Flexing and stretching your leg muscles. ? Squatting. ? Keep all follow-up visits. Contact a doctor if: ? You continue to have episodes of near fainting. Get help right away if: ? You pass out or faint. ? You have any of these symptoms: ? Fast or uneven heartbeats (palpitations). ? Pain in your chest, belly, or back. ? Shortness of breath. ? You have a seizure. ? You have a very bad headache. ? You are confused. ? You have trouble seeing. ? You are very weak. ? You have trouble walking. ? You are bleeding from your mouth or butt. ? You have black or tarry poop (stool). These symptoms may be an emergency. Get help right away. Call your local emergency services ([facility] [place] ? Do not wait to see if the symptoms will go away. ? Do not drive yourself to the hospital. Summary ? Near-syncope is when you suddenly feel like you might pass out or faint. ? This condition is caused by a sudden decrease in blood flow to the brain. ? Near-syncope may be a sign of a serious medical problem, so it is important to seek medical care. ? If you start to feel like you might pass out, sit or lie down right away. If sitting, lower your head down between your legs. If lying down, raise (elevate) your feet above the level of your heart. ? Talk with your doctor about your symptoms. You may need to have testing to help find the cause. This information is not intended to replace advice given to you by your health care provider. Make sure you discuss any questions you have with your health care provider. Document Revised: 08/01/2021 Document Reviewed: 08/01/2021 [employer] Patient Education ?? 2022 [employer] Inc. Palpitations Palpitations are feelings that your heartbeat is irregular or is faster than normal. It may feel like your heart is fluttering or skipping a beat. Palpitations may be caused by many things, includingsmoking, caffeine, alcohol, stress, and certain medicines or drugs. Most causes of palpitations arenot serious. However, some palpitations can be a sign of a serious problem. Further tests and a thorough medicalhistory will be done to find the cause of your palpitations. Your provider may order tests such as an ECG, labs, an echocardiogram, or an ambulatory continuous ECG monitor. Follow these instructions at home: Pay attention to any changes in your symptoms. Let your health care provider know about them. Take these actions to help manage your symptoms: Eating and drinking Follow instructions from your health care provider about eating or drinking restrictions. You may need to avoid foods and drinks that may cause palpitations. These may include: ? Caffeinated coffee, tea, soft drinks, and energy drinks. ? Chocolate. ? Alcohol. ? Diet pills. Lifestyle ? Take steps to reduce your stress and anxiety. Things that can help you relax include: ? Yoga. ? Mind-body activities, such as deep breathing, meditation, or using words and images to create positive thoughts (guided imagery). ? Physical activity, such as swimming, jogging, or walking. Tell your health care provider if your palpitations increase with activity. If you have chest pain or shortness of breath with activity, do not continue the activity until you are seen by your health care provider. ? Biofeedback. This is a method that helps you learn to use your mind to control things in your body,such as your heartbeat. ? Get plenty of rest and sleep. Keep a regular bed time. ? Do not use drugs, including cocaine or ecstasy. Do not use marijuana. ? Do not use any products that contain nicotine or tobacco. These products include cigarettes, chewing tobacco, and vaping devices, such as e-cigarettes. If you need help quitting, ask your health careprovider. General instructions ? Take trdj-vqt-xiivvno and prescription medicines only as told by your health care provider. ? Keep all follow-up visits. This is important. These may include visits for further testing if palpitations do not go away or get worse. Contact a health care provider if: ? You continue to have a fast or irregular heartbeat for a long period of time. ? You notice that your palpitations occur more often. Get help right away if: ? You have chest pain or shortness of breath. ? You have a severe headache. ? You feel dizzy or you faint. These symptoms may represent a serious problem that is an emergency. Do not wait to see if the symptoms will go away. Get medical help right away. Call your local emergency services (911 in the [place] Do not drive yourself to the hospital. Summary ? Palpitations are feelings that your heartbeat is irregular or is faster than normal. It may feel like your heart is fluttering or skipping a beat. ? Palpitations may be caused by many things, including smoking, caffeine, alcohol, stress, certain medicines, and drugs. ? Further tests and a thorough medical history may be done to find the cause of your palpitations. ? Get help right away if you faint or have chest pain, shortness of breath, severe headache, or dizziness. This information is not intended to replace advice given to you by your health care provider. Make sure you discuss any questions you have with your health care provider. Document Revised: 08/14/2021 Document Reviewed: 08/14/2021 [employer] Patient Education ?? 2022 [employer]. Tests Performed Lab Test Name Test Result Date/Time WBC 5.8 x10^3/mcL 05/04/2024 11:49 EST RBC 4.5 x10^6/mcL 05/04/2024 11:49 EST Hgb 14.4 g/dL 05/04/2024 11:49 EST Hct 42.0 % 05/04/2024 11:49 EST MCV 94.0 fL 05/04/2024 11:49 EST MCH 32.2 pg 05/04/2024 11:49 EST MCHC 34.3 g/dL 05/04/2024 11:49 EST RDW-CV 12.3 % 05/04/2024 11:49 EST Platelets 203 x10^3/mcL 05/04/2024 11:49 EST Neutro Auto 63.9 % 05/04/2024 11:49 EST Lymph Auto 28.8 % 05/04/2024 11:49 EST [place] Auto 6.4 % 05/04/2024 11:49 EST Eos, Auto 0.3 % 05/04/2024 11:49 EST Basophil Auto 0.3 % 05/04/2024 11:49 EST Imm Gran Auto 0.3 % 05/04/2024 11:49 EST Neutro Absolute 3.7 x10^3/mcL 05/04/2024 11:49 EST Sodium Level 139 mmol/L 05/04/2024 11:49 EST Potassium Level 4.4 mmol/L 05/04/2024 11:49 EST Chloride Level 105 mmol/L 05/04/2024 11:49 EST CO2 28 mmol/L 05/04/2024 11:49 EST Alk Phos 59 unit/L 05/04/2024 11:49 EST AST 17 unit/L 05/04/2024 11:49 EST ALT 23 unit/L 05/04/2024 11:49 EST BUN 8 mg/dL 05/04/2024 11:49 EST Glucose Level 104 mg/dL 05/04/2024 11:49 EST Creatinine Level 0.88 mg/dL 05/04/2024 11:49 EST eGFR AA 89 05/04/2024 11:49 EST eGFR Non-AA 89 05/04/2024 11:49 EST Calcium Level 8.9 mg/dL 05/04/2024 11:49 EST Protein Total 6.9 g/dL 05/04/2024 11:49 EST Albumin Level 4.2 g/dL 05/04/2024 11:49 EST Bilirubin Total 1.8 mg/dL 05/04/2024 11:49 EST Troponin-I <5.0 pg/mL 05/04/2024 11:49 EST TSH 1.050 mcIntlUnit/mL 05/04/2024 11:49 EST Patient/Hedis Specialist Signature Patient Name:EDNA JUAREZ I have received this information and my questions have been answered. Patient/Hedis Specialist Name: Patient/Hedis Specialist Signature: Relationship to Patient: Witness Name/Signature: Date: Electronically Signed on: 05/04/2024 13:24 ESTSigned by:TITUS * Juan Alberto Schmitz MD: PERFORM Event Display: ED Discharge Information Authored Date: [id number] EDNA JUAREZ :1990 Age:34 years Sex:Female Visit Date:05/04/2024 Primary Care Physician: Dali Hood APRN Discharge Instructions We would like to thank you for allowing us to assist you with your healthcare needs. The following includes patient education materials and information regarding your injury/illness. Diagnosis from Today's Visit Palpitations Near syncope Discharge Vitals Temperature??(Temporal Artery) 97.7 ??F (36.5 ??C) Heart Rate??(Peripheral) 87 Respiratory Rate?? 22 Blood Pressure?? 104/99?? SpO2?? 97% Height?? 64.00 in (162.56 cm) Weight??(Estimated) 168.02 lb (76.20 kg) BMI?? 28.84 Allergies EGG acetaminophen-oxycodone What to Do Next Instructions from Your Care Team The department of cardiology should be calling you to set up an echocardiogram. ??He can also call them at [phone].?? You should also get a call for follow- up with cardiology??Dr. Zafar Gandara.??Wear the event monitor as arranged. You Need to Schedule the Following Appointments Follow Up with??Dali Hood APRN When:??Within 1 week Where: [facility] [address] [place] [address] [place] [address]- Upcoming Scheduled Appointments Thursday 11:15 AM EDT ?? With: Ava Shields TEXTILE BAG SEWER Where: [facility] [address] [place] [address] Status: Confirmed Future Orders Event Monitor, 05/04/24, ABEL, Palpitations, Ambulatory, Patient has IV, Order for future visit, Once You were treated today on an emergency basis; it may be kinsey to contact your primary care provider to notify them of your visit today. You may have been referred to your regular doctor or a specialist, please follow up as instructed. If your condition worsens or you can't get in to see the doctor, contact the Emergency Department. Medications What How Much When Instructions Next Dose Unchanged buPROPion (Wellbutrin) 300 Milligrams Oral (given by mouth) Every day Education Materials Near-Syncope Near-syncope is when you suddenly feel like you might pass out or faint. This may also be called presyncope. During an episode of near-syncope, you may: ? Feel dizzy, weak, or light-headed. It may feel like the room is spinning. ? Feel like you may vomit (nauseous). ? See spots or see all white or all black. ? Have cold, clammy skin. ? Feel warm and sweaty. ? Hear ringing in your ears. This condition is caused by a sudden decrease in blood flow to the brain. This can result from manycauses, but most of those causes are not dangerous. However, near-syncope may be a sign of a serious medical problem, so it is important to seek medical care. Follow these instructions at home: Medicines ? Take byip-fst-pmlowry and prescription medicines only as told by your doctor. ? If you are taking blood pressure or heart medicine, get up slowly and spend many minutes getting ready to sit and then stand. This can help with dizziness. Lifestyle ? Do not drive, use machinery, or play sports until your doctor says it is okay. ? Do not drink alcohol. ? Do not smoke or use any products that contain nicotine or tobacco. If you need help quitting, ask your doctor. ? Avoid hot tubs and saunas. General instructions ? Be aware of any changes in your symptoms. ? Talk with your doctor about your symptoms. You may need to have testing to help find the cause. ? If you start to feel like you might pass out, sit or lie down right away. If sitting, lower your head down between your legs. If lying down, raise (elevate) your feet above the level of your heart. ? Breathe deeply and steadily. Wait until all of the symptoms are gone. ? Have someone stay with you until you feel better. ? Drink enough fluid to keep your pee (urine) pale yellow. ? Avoid standing for a long time. If you must stand for a long time, do movements such as: ? Moving your legs. ? Crossing your legs. ? Flexing and stretching your leg muscles. ? Squatting. ? Keep all follow-up visits. Contact a doctor if: ? You continue to have episodes of near fainting. Get help right away if: ? You pass out or faint. ? You have any of these symptoms: ? Fast or uneven heartbeats (palpitations). ? Pain in your chest, belly, or back. ? Shortness of breath. ? You have a seizure. ? You have a very bad headache. ? You are confused. ? You have trouble seeing. ? You are very weak. ? You have trouble walking. ? You are bleeding from your mouth or butt. ? You have black or tarry poop (stool). These symptoms may be an emergency. Get help right away. Call your local emergency services (911 int [place] ? Do not wait to see if the symptoms will go away. ? Do not drive yourself to the hospital. Summary ? Near-syncope is when you suddenly feel like you might pass out or faint. ? This condition is caused by a sudden decrease in blood flow to the brain. ? Near-syncope may be a sign of a serious medical problem, so it is important to seek medical care. ? If you start to feel like you might pass out, sit or lie down right away. If sitting, lower your head down between your legs. If lying down, raise (elevate) your feet above the level of your heart. ? Talk with your doctor about your symptoms. You may need to have testing to help find the cause. This information is not intended to replace advice given to you by your health care provider. Make sure you discuss any questions you have with your health care provider. Document Revised: 08/01/2021 Document Reviewed: 08/01/2021 [employer] Patient Education ?? 2022 [employer] Palpitations Palpitations are feelings that your heartbeat is irregular or is faster than normal. It may feel like your heart is fluttering or skipping a beat. Palpitations may be caused by many things, includingsmoking, caffeine, alcohol, stress, and certain medicines or drugs. Most causes of palpitations arenot serious. However, some palpitations can be a sign of a serious problem. Further tests and a thorough medicalhistory will be done to find the cause of your palpitations. Your provider may order tests such as an ECG, labs, an echocardiogram, or an ambulatory continuous ECG monitor. Follow these instructions at home: Pay attention to any changes in your symptoms. Let your health care provider know about them. Take these actions to help manage your symptoms: Eating and drinking Follow instructions from your health care provider about eating or drinking restrictions. You may need to avoid foods and drinks that may cause palpitations. These may include: ? Caffeinated coffee, tea, soft drinks, and energy drinks. ? Chocolate. ? Alcohol. ? Diet pills. Lifestyle ? Take steps to reduce your stress and anxiety. Things that can help you relax include: ? Yoga. ? Mind-body activities, such as deep breathing, meditation, or using words and images to create positive thoughts (guided imagery). ? Physical activity, such as swimming, jogging, or walking. Tell your health care provider if your palpitations increase with activity. If you have chest pain or shortness of breath with activity, do not continue the activity until you are seen by your health care provider. ? Biofeedback. This is a method that helps you learn to use your mind to control things in your body,such as your heartbeat. ? Get plenty of rest and sleep. Keep a regular bed time. ? Do not use drugs, including cocaine or ecstasy. Do not use marijuana. ? Do not use any products that contain nicotine or tobacco. These products include cigarettes, chewing tobacco, and vaping devices, such as e-cigarettes. If you need help quitting, ask your health careprovider. General instructions ? Take htas-txa-jwxqkfg and prescription medicines only as told by your health care provider. ? Keep all follow-up visits. This is important. These may include visits for further testing if palpitations do not go away or get worse. Contact a health care provider if: ? You continue to have a fast or irregular heartbeat for a long period of time. ? You notice that your palpitations occur more often. Get help right away if: ? You have chest pain or shortness of breath. ? You have a severe headache. ? You feel dizzy or you faint. These symptoms may represent a serious problem that is an emergency. Do not wait to see if the symptoms will go away. Get medical help right away. Call your local emergency services (911 in the [place] Do not drive yourself to the hospital. Summary ? Palpitations are feelings that your heartbeat is irregular or is faster than normal. It may feel like your heart is fluttering or skipping a beat. ? Palpitations may be caused by many things, including smoking, caffeine, alcohol, stress, certain medicines, and drugs. ? Further tests and a thorough medical history may be done to find the cause of your palpitations. ? Get help right away if you faint or have chest pain, shortness of breath, severe headache, or dizziness. This information is not intended to replace advice given to you by your health care provider. Make sure you discuss any questions you have with your health care provider. Document Revised: 08/14/2021 Document Reviewed: 08/14/2021 [employer] Patient Education ?? 2022 [employer]. Tests Performed Lab Test Name Test Result Date/Time WBC 5.8 x10^3/mcL 05/04/2024 11:49 EST RBC 4.5 x10^6/mcL 05/04/2024 11:49 EST Hgb 14.4 g/dL 05/04/2024 11:49 EST Hct 42.0 % 05/04/2024 11:49 EST MCV 94.0 fL 05/04/2024 11:49 EST MCH 32.2 pg 05/04/2024 11:49 EST MCHC 34.3 g/dL 05/04/2024 11:49 EST RDW-CV 12.3 % 05/04/2024 11:49 EST Platelets 203 x10^3/mcL 05/04/2024 11:49 EST Neutro Auto 63.9 % 05/04/2024 11:49 EST Lymph Auto 28.8 % 05/04/2024 11:49 EST Cayuga Auto 6.4 % 05/04/2024 11:49 EST Eos, Auto 0.3 % 05/04/2024 11:49 EST Basophil Auto 0.3 % 05/04/2024 11:49 EST Imm Gran Auto 0.3 % 05/04/2024 11:49 EST Neutro Absolute 3.7 x10^3/mcL 05/04/2024 11:49 EST Sodium Level 139 mmol/L 05/04/2024 11:49 EST Potassium Level 4.4 mmol/L 05/04/2024 11:49 EST Chloride Level 105 mmol/L 05/04/2024 11:49 EST CO2 28 mmol/L 05/04/2024 11:49 EST Alk Phos 59 unit/L 05/04/2024 11:49 EST AST 17 unit/L 05/04/2024 11:49 EST ALT 23 unit/L 05/04/2024 11:49 EST BUN 8 mg/dL 05/04/2024 11:49 EST Glucose Level 104 mg/dL 05/04/2024 11:49 EST Creatinine Level 0.88 mg/dL 05/04/2024 11:49 EST eGFR AA 89 05/04/2024 11:49 EST eGFR Non-AA 89 05/04/2024 11:49 EST Calcium Level 8.9 mg/dL 05/04/2024 11:49 EST Protein Total 6.9 g/dL 05/04/2024 11:49 EST Albumin Level 4.2 g/dL 05/04/2024 11:49 EST Bilirubin Total 1.8 mg/dL 05/04/2024 11:49 EST Troponin-I <5.0 pg/mL 05/04/2024 11:49 EST TSH 1.050 mcIntlUnit/mL 05/04/2024 11:49 EST Patient/Hedis Specialist Signature Patient Name:ANN EDNA M I have received this information and my questions have been answered. Patient/Hedis Specialist Name: Patient/Hedis Specialist Signature: Relationship to Patient: Witness Name/Signature: Date: Electronically Signed on: 05/04/2024 13:08 ESTSigned by:[facility] Cardiology * Nubia Ly SYRUP SHED SUPERVISOR: PERFORM Event Display: Event Monitor Authored Date: [id number] * Nubia Ly SYRUP SHED SUPERVISOR: PERFORM Event Display: Event Monitor Authored Date: [id number] EDNA JUAREZ 1990 [id number] Patient placed on a [employer] Event Monitor for 30 days on 05/04/2024. Electronically Signed on 05/04/2024 13:44 EST Nubia Ly SYRUP SHED SUPERVISOR Patient Care team information Care Team Personnel Name: Sidney Burgess MD Position: Physician Member Role: Informed Provider Address: [address] [place] [address] [place], [place] [address] Telecom: Name: Dali Hood APRN Position: No Access Member Role: Primary Care Physician Address: [address] [place], [place] [address] Telecom: Care Team Related Persons Name: HEIDY BERRY Name: BRODERICK SANTOS Insurance Providers Guarantor name: EDNA JUAREZ Health Plan Information #: 1 Payer: [employer] [facility] Member Number: [id number] Policy Number: NA Group Number: [id number] Health Plan Information #: 2 Payer: [employer] [facility] Member Number: [id number] Policy Number: NA Group Number: NA Health Plan Information #: 3 Payer: SELF EMPLOYED Member Number: NA Policy Number: NA Group Number: NA
--- OUTSIDE RECORDS SUMMARY | 2024-05-05 21:38 | XMS_ITS | Continuity of Care Document ---
Author Organization [facility] Address [address] [place] [address] Care Team Providers Care Hearing Impaired Itinerant Teacher Name Role Phone Sidney Marmolejo Primary Care Physician Encounter [facility] Date(s): 11/17/23 - 11/17/[address] [address] Discharge Disposition: Home or Self Care Attending Physician: Dali Hood APRN Admitting Physician: Dali Hood APRN Referring Physician: Dali Hood APRN Allergies, Adverse Reactions, Alerts Substance Reaction Severity Status EGG Unknown Active acetaminophen-oxycodone Unknown Acti ve Assessment and Plan Future Appointments Immunizations Given and Recorded Vaccine Date Status Refusal Reason SARS-CoV-2 (COVID-19) mRNA-1273 vaccine 09/06/20 R ecorded influenza virus vaccine, live 01/29/17 Recorded tetanus/diphth/pertuss (Tdap) adult/adol 05/25/15 Recorded tetanus/diphth/pertuss (Tdap) adult/adol 04/20/12 Recorded Procedures Procedure Date Related Diagnosis Body Site Status Due 02/2022 1 02/27/19 Completed 1Pap Due - 02/2022 09/22/06, 10/28/07, 08/10/12, 08/24/15 - WNL; 02/28/19 - Neg Social History Social History Type Response Tobacco Current everyday tob acco user Tobacco Use:. 1/2 ppd per day. Sex Female Patient Care team information Care Team Personnel Name: Sidney Marmolejo MD Position: No Access Member Role: Primary Care Physician Address: Address: [facility] [address] [place], [place] [address] Care Team Related Persons Name: BRODERICK SANTOS Address: [address] [place] [address] Address: [address]ailing [address] [place] [address] Name: ALEX SATNOS Address: [address] [place] [address] [facility] [address] [place] [address]
--- OUTSIDE RECORDS SUMMARY | 2024-05-05 21:38 | XMS_ITS | Continuity of Care Document ---
Author Organization [facility] Address [address] [place] [address] Care Team Providers Care Central Office Associate Name Role Phone Dali Hood Primary Care Physician [phone] Encounter [facility] Date(s): 04/08/24 - 04/08/[address] [address] Discharge Disposition: Home or Self Care Attending Physician: Dali Hood APRN Admitting Physician: Dali Hood APRN Referring Physician: Dali Hood APRN Encounter Type: Outpatient Allergies, Adverse Reactions, Alerts Substance Criticality Severity Reaction Reaction Severity Status EGG Unable to assess criticality Unknown Active acetaminophen-oxycod one Unable to assess criticality Unknown Active Assessment and Plan Future Appointments Immunizations Given [...] Position: Physician Member Role: Informed Provider Address: [address] [place] [address]- [place] Telecom: Name: Dali Hood APRN Position: No Access Member Role: Primary Care Physician Address: [facility] [address] [address]- [place] Telecom: Care Team Related Persons Name: BRODERICK SANTOS Insurance Providers Guarantor name: EDNA JUAREZ Health Plan Information #: 1 Payer: [facility] Member Number: [id number] Policy Number: NA Group Number: [id number] Health Plan Information #: 2 Payer: [facility] Member Number: [id number] Policy Number: NA Group Number: NA Health Plan Information #: 3 Payer: SELF EMPLOYED Member Number: NA Policy Number: NA Group Number: NA
--- OUTSIDE RECORDS SUMMARY | 2024-05-05 21:38 | XMS_ITS | Continuity of Care Document ---
Author Organization [facility] Address [address] [place] [address] Care Team Providers Care Tank Refinisher Name Role Phone Dali Hood Primary Care Physician [phone] [facility] [id number] Date(s): 03/22/24 - 03/22/24 [facility] [address] [place] [address] Encounter Type: History Allergies, Adverse Reactions, Alerts Substance Criticality Severity [...] Role: Informed Provider Address: [address] [place] [address] [place] Telecom: Name: Dali Hood APRN Position: No Access Member Role: Primary Care Physician Address: [place] [address] [place] [address]- [place] Telecom: Care Team Related Persons Name: BRODERICK SANTOS Name: ALEX SANTOS Insurance Providers Guarantor name: EDNA [facility] Plan Information #: 1 Payer: SELF EMPLOYED Member Number: NA Policy Number: NA Group Number: NA
--- OUTSIDE RECORDS SUMMARY | 2024-05-05 21:38 | XMS_ITS | Continuity of Care Document ---
Author Organization [facility] Address [address] [place] [address] Care Team Providers Care Machine Joiner Cementer Name Role Phone au [facility], Sidney Boyd Primary Care Physician Encounter [facility] Date(s): 02/23/24 - 02/23/[address] [address] Discharge Disposition: Home or Self Care Attending Physician: Dali Hood APRN Admitting Physician: Dali Hood APRN Referring Physician: Dali Hood APRN Allergies, Adverse Reactions, Alerts Substance Criticality Severity [...] - Neg Results Laboratory List Name Date Automated Diff 02/23/24 Bilirubin Direct 02/23/24 CBC w/ Diff 02/23/24 Comprehensive Metabolic Panel 02/23/24 GGT 02/23/24 HIV 1/2 Ag and Ab, 4th Generation [facility] Most recent to oldest [Reference Range]: 1 WBC [5.0-10.0 x10^3/mcL] 7.9 x10^3/mcL (02/23/24 6:20 AM) RBC [4.1-5.3 x10^6/mcL] 4.4 x10^6/mcL (02/23/24 6:20 AM) Neutro Auto [40.0-75.0 %] 69.8 % (02/23/24 6:20 AM) Lymph Auto [20.0-50.0 %] 23.2 % (02/23/24 6:20 AM) [place]high Auto [2.0-15.0 %] 5.3 % (02/23/24 6:20 AM) Basophil Auto [0.0-1.0 %] 0.5 % (02/23/24 6:20 AM) BUN [7-18 mg/dL] 9 mg/dL (02/23/24 6:20 AM) Glucose Level [74-106 mg/dL] 84 mg/dL (02/23/24 6:20 AM) Potassium Level [3.5-5.1 mmol/L] 4.6 mmo l/L (02/23/24 6:20 AM) MCV [80.0-96.0 fL] 92.4 fL (02/23/24 6:20 AM) AST [15-37 unit/L] 12 unit/L *LOW* (02/23/24:20 AM) ALT [14-59 unit/L] 22 unit/L (02/23/24 6:20 AM) MCHC [31.0-35.0 g/dL] 34.7 g/dL (02/23/24 6:20 AM) Sodium Level [136-145 mmol/L] 142 mmol/L (02/23/24 6:20 AM) Hct [37.0-47.0 %] 40.4 % (02/23/24 6:20 AM) Calcium Level [8.5-10.1 mg/dL] 9.3 mg/dL (02/23/24 6:20 AM) Albumin Level [3.4-5.0 g/dL] 4.4 g/dL (02/23/24 6:20 AM) Protein Total [6.4-8.2 g/dL] 7.1 g/dL (02/23/24 6:20 AM) MCH [26.0-32.0 pg] 32.0 pg (02/23/24 6:20 AM) Neutro Absolute 5.5 x10^3/mcL *NA* (02/23/24 6:20 AM) Bilirubin Total [0.2-1.0 mg/dL] 1.1 mg/d L *HI* (02/23/24 6:20 AM) Hgb [12.0-16.0 g/dL] 14.0 g/dL (02/23/24 6:20 AM) Alk Phos [46-146 unit/L] 83 unit/L (02/23/24 6:20 AM) Bilirubin Direct [0.00-0.20 mg/dL] 0.20 mg/dL (02/23/24 6:20 AM) Platelets [130-450 x10^3/mcL] 206 x10^3/ mcL (02/23/24 6:20 AM) CO2 [21-32 mmol/L] 29 mmol/L (02/23/24 6:20 AM) GGT [5-55 unit/L] 11 unit/L (02/23/24 6:20 AM) eGFR Non-AA [>=60] 108 (02/23/24 6:20 AM) eGFR AA [>=60] 108 (02/23/24 6:20 AM) Chloride Level [98-107 mmol/L] 106 mmol/ L (02/23/24 6:20 AM) RDW-CV [11.5-14.5 %] 12.4 % (02/23/24 6:20 AM) Imm Gran Auto [0.0-0.9 %] 0.3 % (02/23/24 6:20 AM) Creatinine Level [0.55-1.02 mg/dL] 0.75 mg/dL (02/23/24 6:20 AM) HIV 1 and 2 Ab/p24 Ag, 4th Gen [facility] [Nega tive] Negative 1 *NA* (02/23/24 6:20 AM) Eos, Auto [1.0-6.0 %] 0.9 % *LOW* (02/23/24 6:20 AM) 1Result Comment: If acute HIV-1 infection is suspected in a high risk patient, submit plasma specimen for HIV-1 RNA quantitation test. Fourth Generation assay performed on the Siemens Centaur XPT. Test performed [place] [address] Social History Social History Type Response Tobacco Current everyday tob acco user Tobacco Use:. 1/2 ppd per day. Sex Female Sex Representation Female (finding) Patient Care team information Care Team Personnel Name: [facility] Position: No Access Member Role: Primary Care Physician Address: [place] [address]- Name: Subhash [facility] Position: Physician Member Role: Informed Provider Address: [address] [place] [address] [place] [address]- [place] Care Team Related Persons Name: BRODERICK SANTOS Name: ALEX SANTOS Insurance Providers Guarantor name: EDNA JUAREZ Health Plan Information #: 2 Payer: SELF EMPLOYED Member Number: NA Policy Number: NA
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
--- OUTSIDE RECORDS SUMMARY | 2024-05-05 21:38 | XMS_ITS | Continuity of Care Document ---
Author Organization [facility], Dali Hood Address [address] [facility] [address] [address] Assessment Encounter Date Assessment Date Assessment LastModified by Organization Details LastModified Time 04/19/2024 04/19/2024 - palpitations: The patient reports [...] >45 minutes performing evaluation and medication management. [email or web address] Not available 04/19/2024 17:45:47 Plan of Treatment Reminders Order Date Submit Date Provider Last Modified By Organization Details Last Modified Time Details Appointments PSYCHIATR Y FOLLOWUP 30 2024 04:30P M Dali Hood, UNSTACKER, WEB SITE ADMIN-C, PMHNP-C, DNP Not available Not available Not available Lab None recorded. Referral None recorded. Procedures None recorded. Surgeries None recorded. Imaging holter monitor - 14 days monitorin g for palpitati on/flutte rs 2024 025 [facility], [address] [place] [address] , [place], [address], 04/19/2024 17:48:26 Medication Orders propranol ol 10 mg tablet 2024 025 [employer] [facility] [address], [address] [facility], [place], [address], 04/19/2024 17:46:18 bupropion HCl SR 150 mg tablet,12 hr sustained -release 2024 025 [employer] [address], [address] [facility], [place], [address], 04/19/2024 17:46:18 Concerta 36 mg tablet,ex tended release 2024 025 [employer] [address], [address] [facility], [place], [address], 04/19/2024 17:46:31 Patient TargetsNo targets recorded. Patient Instructions Encounter Date Encounter Id Patient Instructions Last Modified By Organization Details Last Modified Time 04/19/2024 469 - Continue takin g your [...] Not available 04/19/2024 17:38:06 Reason for Referral None Reported. Results Created Date Observation Date Name Description Value Unit Range Abnormal Flag Note LastModifiedBy Organization Detail LastModifiedTime 04/11/19 25 04/08/2024 cecil AVALOS x, abdom en, compl ete No observ ation record ed. BARCODE Not Available 2024 11:12:47 04/11/19 25 04/08/2024 rachid AVALOSle x, abdom en, compl ete No observ ation record ed. BARCODE Not Available 2024 11:52:46 Result Notes None recorded. Problems Name Problem SNOMED Code Status Onset Date Resolution Date Notes Provider Name and Address Organization Details Recorded Time Proteinuria 32086251 Active [address] [place], [address], [facility] 12:17:46 Mild depression 050185556 Active [address] [place], [address], [facility] 12:17:55 Body mass index 30+ - obesity 079861186 Active [address] [place], [address], [facility] 12:18:12 Frequent headache 817080815 Active [address] [place], [address], [place] [facility] 12:18:20 Attention deficit hyperactivity disorder 321514436 Active [address] [facility] [place], [address], [place] - [facility] 12:18:39 Atrial fibrillation 85421638 Active 2024 Dali Hood APRN, WEB SITE ADMIN-C, PMHNP-C, DNP Eh [address] [facility] [place], [address], [facility] 5 17:35:40 Palpitations 45704959 Active 2023 Dali Hood APRN, WEB SITE ADMIN-C, PMHNP-C, [place] [address] [place], [address], [facility] 10:00:59 Problem Notes None recorded. Medical Equipment None Reported. [...] Not Available Not Available Not Available Vitals None Recorded Social History None recorded. Functional Status None recorded. Mental Status None recorded. Family History Nothing Reported. Medical History No medical history recorded. Gynecological HistoryNo gynecological history recorded. Obstetrics History GPAL:G 0 P 0 0 0 0 Past Encounters Encounter ID Performer Location Encounter Start Date Encounter Closed Date Diagnosis/Indication Diagnosis SNOMED-CT Code Diagnosis ICD10 Code Diagnosis Note 167 Dali Hood APRN, WEB SITE ADMIN-C, PMHNP-C, DNP Dali Hood [address] [place] [address] 2024 09:03:17 2024 09:49:43 Right upper quadrant pain 415976742 R10.11 Order amylase and lipase tests to rule out pancreatit is. Monitor symptoms and ensure proper hydration. Sleep apnea 63581147 G47 .30 Referral to sleep clinic for evaluation of possible central sleep apnea. Consider CPAP therapy to improve oxygenatio n during sleep. Attention deficit hyperactivity disorder 259985296 F90.9 - The Concerta prescripti on has been renewed today with caution following recent episodes of palpitatio ns. She has been advised to stop taking it if her symptoms persist or worsen, or to hold off until she can be evaluated by Dr. Gandara at . She agrees with this plan. Mild depression 32132749 3 F32.A Mood is mild stable on current medication (Wellbutri n SR 150mg Bid.). Patient denies SI, HI, intention or plan. Palpitations 20711696 R0 0.2 2/6 grade systolic murmur heard best at the 5th intercosta l. Referral to cardiologi st ordered. Patient is agreeable with the plan. 469 Dali Hood, UNSTACKER, WEB SITE ADMIN-C, PMHNP-C, DNP Dali Hood [address] [place] [address] ,[address] [place] [address] 04/19/2024 15:58:26 04/19/2024 16:32:50 Atrial fibrillation 53446784 I48.91 Initiate a beta ghazala at 10 mg as needed for palpitatio ns, with parameters to avoid if systolic blood pressure is less than 100 or pulse is less than 60. Order an echocardio gram and a Holter monitor to assess heart rhythm and rule out atrial fibrillati on. Attention deficit hyperactivity disorder 221104017 F90.9 - The Concerta prescripti on has been renewed today with caution following recent episodes of palpitatio ns. She has been advised to stop taking it if her symptoms persist or worsen, or to hold off until she can be evaluated by Dr. Gandara at . She agrees with this plan. Mild depression 88531946 3 F32.A Mood is mild stable on current medication (Wellbutri n SR 150mg Bid.). Patient denies SI, HI, intention or plan. Health Concerns Section Related Observation LastModified by Organization Detai ls LastModified Time None Recorded Concern Status LastModified by Organization Details LastModified Time None Recorded Payers Encounter Date Sequence Insurance Name Policy Number Policy Rod Covered Member ID Rod Member ID Guarantor Name 04/19/2024 1 [facility]: [facility] [id number] Madalyn Red [id number] Madalyn Red Notes Date Note Type Note Provider Name and Address Organization Details Recorded Time 04/19/2024 text/html Experiencing palpitations that occur both [...] plateaued at 164.6 pounds. Dali Hood APRN, WEB SITE ADMIN-C, PMHNP-C, DNP [address] [facility] , [place], [address], [facility] 04/19/2024 17:46:44 OBGyn Episode No OBEpisode recorded.
--- OUTSIDE RECORDS SUMMARY | 2024-05-05 21:38 | XMS_ITS | Continuity of Care Document ---
Author Organization [facility] Address [address] [place] [address] Care Team Providers Care Car Oiler Name Role Phone Dali Hood Primary Care Physician Encounter [facility] Date(s): 05/04/24 - 05/04/24 [facility] [address] [place] [address] Discharge Disposition: Home Encounter Type: Between Visit Allergies, Adverse Reactions, Alerts Substance Criticality Severity Reaction Reaction Severity Status EGG Unable to assess criticality Unknown Active acetaminophen-oxycod one Unable to assess criticality Unknown Active Assessment and Plan Future Appointments Immunizations Given and Recorded Vaccine Date Status Refusal Reason SARS-CoV-2 (COVID-19) mRNA-8583 vaccine 09/06/20 R ecorded influenza virus vaccine, [...] Care team information Care Team Personnel Name: [facility], [place] Oliver MD Position: Physician Member Role: Informed Provider Address: [address] [place] [address] [place] Tele[employer]: Name: Dali Hood APRN Position: No Access Member Role: Primary Care Physician Address: [place] [address] [place] [address]- Telecom: Care Team Related Persons Name: HEIDY BERRY Name: BRODERICK SANTOS Insurance Providers Guarantor name: EDNA JUAREZ Health Plan Information #: 1 Payer: [facility] Member Number: NA Policy Number: NA Group Number: NA Health Plan Information #: 2 Payer: SELF EMPLOYED Member Number: NA Policy Number: NA Group Number: NA
--- OUTSIDE RECORDS SUMMARY | 2024-05-05 21:38 | XMS_ITS | Continuity of Care Document ---
Author Organization [facility] Address [address] [place] [address] Care Team Providers Care Corporate Bond Trader Name Role Phone Dali Hood Primary Care Physician [phone] Encounter [facility] Date(s): 04/21/24 - 04/21/[address] [address] Discharge Disposition: Home or Self Care Attending [...] day. Sex Female Sex Representation Female (finding) Cardiology * Nubia Ly [employer]ENA[employer] MARINE: PERFORM Event Display: Event Monitor Authored Date: [id number] EDNA JUAREZ 1990 [id number] Patient placed on Zio Event Monitor 14 days on 04/21/24. Electronically Signed on 04/21/2024 08:08 EST Nubia Ly [employer] Patient Care team information Care Team Personnel Name: [place] Burgess MD Position: Physician Member Role: Informed Provider Address: [address] [place] [address] [place] [address] Telecom: Name: Dali Hood APRN Position: No Access Member Role: Primary Care Physician Address: [address] [place], [place] [address] Telecom: Care Team Related Persons Name: BRODERICK SANTOS Insurance Providers Guarantor name: EDNA JUAREZ Health Plan Information #: 1 Payer: [facility] Member Number: [id number] Policy Number: NA Group Number: [id number] Health Plan Information #: 2 [facility] Member Number: [id number] Policy Number: NA Group Number: NA Health Plan Information #: 3 Payer: SELF EMPLOYED Member Number: NA Policy Number: NA Group Number: NA
--- OUTSIDE RECORDS SUMMARY | 2024-05-05 21:39 | XMS_ITS | Continuity of Care Document ---
Author Organization [facility], Dali Hood Address [address] [facility] [address] [place] [address] Assessment No assessment recorded. Plan of Treatment Reminders Order Date Submit Date Provider Last Modified By Organization Details Last Modified Time Details Appointments PSYCHIATR Y FOLLOWUP 2024 04:30P M Dali Hood, MAGDALENE, ELECTRICIAN SHIP-C, PMHNP-C, DNP Not available Not available Not available Lab None recorded. Referral None recorded. Procedures None recorded. Surgeries None recorded. Imaging None recorded. Medication Orders None recorded. Patient TargetsNo targets recorded. Patient InstructionsNo instructions recorded. Reason for Referral None Reported. Results Created Date Observation Date Name Description Value Unit Range Abnormal Flag Note LastModifiedBy Organization Detail LastModifiedTime 04/11/19 25 04/08/2024 , racihdle x, abdom en, compl ete No observ ation record ed. BARCODE Not Available 2024 11:12:47 04/11/19 25 04/08/2024 rachid AVALOSle x, abdom en, compl ete No observ ation record ed. BARCODE Not Available 2024 11:52:46 Result Notes None recorded. Problems Name Problem SNOMED Code Status Onset Date Resolution Date Notes Provider Name and Address Organization Details Recorded Time Proteinuria 87802489 Active [address] [place], [address], [facility] 12:17:46 Mild depression 501974230 Active [address], [place], [address], [facility] 12:17:55 Body mass index 30+ - obesity 574211364 Active [address] [place], [address], [facility] 4 12:18:12 Frequent headache 453698102 Active [address] [place], [address], [facility] 4 12:18:20 Attention deficit hyperactivity disorder 456182464 Active [address] [place], [address], [facility] 4 12:18:39 Atrial fibrillation 72871828 Active 2024 Dali Hood APRN, ELECTRICIAN SHIP-C, PMHNP-C, DNP [address] [place], [address], [facility] 5 17:35:40 Palpitations 53558814 Active 2023 Dali Hood APRN, ELECTRICIAN SHIP-C, PMHNP-C, DNP [address] [place], [address], [facility] 4 10:00:59 Problem Notes None recorded. Medical Equipment [...] ICD10 Code Diagnosis Note 109 Dali Hood [facility] [address] [place] [address] 03/17/2024 07:31:35 03/18/2024 08:25:54 Health Concerns Section Related Observation LastModified by Organization Detai ls LastModified Time None Recorded Concern Status LastModified by Organization Details LastModified Time None Recorded Payers Encounter Date Sequence Insurance Name Policy Number Policy Rod Covered Member ID Rod Member ID Guarantor Name 03/17/2024 1 *SELF PAY* Tanisha Red OBGyn Episode No OBEpisode recorded.
--- OUTSIDE RECORDS SUMMARY | 2024-05-05 21:39 | XMS_ITS | Continuity of Care Document ---
Author Organization [facility], Dali Hood Address [address] [address] Assessment Encounter Date Assessment Date Assessment LastModified [...] >45 minutes performing evaluation and medication management. [email or web address] Not available 2024 10:20:09 Plan of Treatment Reminders Order Date Submit Date Provider Last Modified By Organization Details Last Modified Time Details Appointments PSYCHIATR Y FOLLOWUP 2024 04:30P M Dali Hood APRN, AUDOGRAPH OPERATOR-C, PMHNP-C, DNP Not available Not available Not available Lab amylase + lipase, serum [address] Lab, [address], [place], [address], 03/28/2024 11:01:44 Referral sleep medicine referral 2023 [email or web address] [address] Anabelle Mims MD, [address], [place], [address], 04/18/2024 08:03:05 cardiolog ist referral 2023 024 [facility], [address], [place], [address], 04/18/2024 08:03:05 Procedures None recorded. Surgeries None recorded. Imaging None recorded. Medication Orders bupropion HCl SR 150 mg tablet,12 hr sustained -release 2023 [employer] [address], [address], [place], [address], 2024 10:29:39 Concerta 36 mg tablet,ex tended release 2023 [facility] [address], [address], [place], [address], 2024 10:29:38 Patient Targets Encounter Date Encounter Id Patient Goals Patient Target Last Modified By Organization Details Last Modified Time - Adequate po hydration is encouraged.- Lifestyle modification with diet and exercise. rachel Not available 2024 10:08:01 Patient Instructions Encounter Date Encounter Id Patient Instructions Last Modified By Organization Details Last Modified Time 2024 167 - Referral to [facility] sleep clinic for evaluation of possible central [...] stop if symptoms worsen; consult with a drywall applicator. - Continue taking Wellbutrin and mood stabilizers as prescribed. - Use Zoponex and Symbicort inhalers for shortness of breath. - Follow up with the physician in one month. [email or web address] Not available 2024 09:46:28 Reason for Referral Sleep Medicine Referral for Sleep apnea Patient has a history of sleep apnea. Recently experiencing hypoxia when suspine or sleeping. Referring Physician: Family Ruma Thornton, Encounter Date: 2024 [facility] Referral for Pa lpitations Referring Physician: Family Ruma Thornton, Encounter Date: 2024 Results Created Date Observation Date Name Description Value Unit Range Abnormal Flag Note LastModifiedBy Organization Detail LastModifiedTime 04/11/1904/08/2024 US, duple x, abdom en, compl ete No observ ation record ed. BARCODE Not Available 2024 11:12:47 04/11/1904/08/2024 US, duple x, abdom en, compl ete No observ ation record ed. BARCODE Not Available 2024 11:52:46 Result Notes None recorded. Problems Name Problem SNOMED Code Status Onset Date Resolution Date Notes Provider Name and Address Organization Details Recorded Time Proteinuria 84774192 Active [address] [place], [address], [facility] 12:17:46 Mild depression 357912185 Active [address] [place], [address], [facility] 12:17:55 Body mass index 30+ - obesity 148675993 Active [address] [place], [address], [facility] 12:18:12 Frequent headache 286881377 Active [address] [place], [address], [facility] 12:18:20 Attention deficit hyperactivity disorder 373380094 Active [address] [place], [address], [facility] 12:18:39 Atrial fibrillation 62252259 Active 2024 Dali Hood APRN, AUDOGRAPH OPERATOR-C, PMHNP-C, DNP [address] [facility] [place], [address], [facility] 5 17:35:40 Palpitations 28368508 Active 2023 Dali Hood APRN, AUDOGRAPH OPERATOR-C, PMHNP-C, DNP [address] [facility] [place], [address], [facility] 4 10:00:59 Problem Notes None [...] and Address Organization Details Last Updated DateTime 4 163.83 cm 28.2 kg/m2 45140.9 3 g 97 % 97 % 78 /min 16 /min 97.3 [degF] 117 mm[Hg] 68 mm[Hg] Dali Hood APRN, JOELLE, DANIEL, MIKEL [address] [place] [address] , [place], [address], [place] - [facility] 09:53:25 Social History None [...] ICD10 Code Diagnosis Note 109 Dali Hood [address] [place] [address] ,[address] [address] 03/17/2024 07:31:35 03/18/2024 08:25:54 167 Dali Hood APRN, FNP-C, DANIEL, MIKEL Hood [address] [place] [address] [address] 2024 09:03:17 2024 09:49:43 Right upper quadrant pain 685029997 R10.11 Order amylase and lipase tests to rule out pancreatit is. Monitor symptoms and ensure proper hydration. Sleep apnea 96398741 G47 .30 Referral to sleep clinic for evaluation of possible central sleep apnea. Consider CPAP therapy to improve oxygenatio n during sleep. Attention deficit hyperactivity disorder 840202647 F90.9 - The Concerta prescripti on has been renewed today with caution following recent episodes of palpitatio ns. She has been advised to stop taking it if her symptoms persist or worsen, or to hold off until she can be evaluated by Dr. Gandara at [facility]. She agrees with this plan. Mild depression 01457337 3 F32.A Mood is mild stable on current medication (Wellbutri n SR 150mg Bid.). Patient denies SI, HI, intention or plan. Palpitations 01113185 R0 0.2 2/6 grade systolic murmur heard best at the 5th intercosta l. Referral to cardiologi st ordered. Patient is agreeable with the plan. Health Concerns Section Related Observation LastModified by Organization Detai ls LastModified Time None Recorded Concern Status LastModified by Organization Details LastModified Time None Recorded Payers Encounter Date Sequence Insurance Name Policy Number Policy Rod Covered Member ID Rod Member ID Guarantor Name 2024 1 *SELF PAY* Tanisha kaitlin Red Notes Date Note Type Note Provider [...] a couple of months. Dali Hood APRN, AUDOGRAPH OPERATOR-C, PMHNP-C, DNP [address] [facility], [place], [address], [facility] 2024 10:29:41 OBGyn Episode No OBEpisode recorded.
--- NOTE | 2024-05-08 09:57 | W.ED.GENAD ---
Discharge Plan Disposition Patient Disposition: Home Condition: Stable Discharge Details Clinical Impression: Heart palpitations Primary Care Provider: Dali Hood ED Provider: Bia Kevin Home Meds and New Rx's Prescriptions: New bupropion HCl [Wellbutrin XL] 150 mg tablet extended release 24 hr 150 mg PO QAM Qty: 14 0RF Discharge Instructions Instructions: Palpitations (DC) Additional Instructions: i'm concerned you may be having an adverse effect to wellbutrin XL cut down to 150 mg tomorrow (I've supplied you with prescription) talk to your doctor about an alternative therapy tomorrow and plan for taper continue wearing your holter please return or be reevaluated should you have new or worsening complaints rest this weekend Referrals: Dali Hood [Primary Care Provider] - 1 day Discharge Data Discharge Date/Time-TO BE ENTERED AT DEPARTURE: 05/05/24 22:39 HPI General Date/Time Provider Initiated Documentation: 05/05/24 18:57. HPI Narrative: The patient is a 34-year-old female who presents for evaluation of palpitations and pain. She is accompanied by her sister. She was evaluated at [facility] yesterday for a similar episode where she almost passed out at work, prompting her sister to take her to the hospital. She began experiencing intermittent palpitations a few months ago, which were not severe. Over the past few weeks, the frequency of her palpitations has increased, with the most recent episode occurring two weeks ago, accompanied by neck pain and fatigue. Today, she reports experiencing palpitations and pain in her left armpit throughout the day. Her heart rate has been recorded in the 120s for the past few days, ranging from the 70s to 110s while at rest. Yesterday, she underwent laboratory tests, an EKG, and a Holter monitor test. Her thyroid function was normal, but a D-dimer test was not performed. She reports no history of pulmonary embolism, hypercholesterolemia, hypertension, recent flight surgeries, or long drives. She also reports no association between her symptoms and exertion, movement, or food intake. She experiences intermittent abdominal pain. She reports no vomiting or nausea but reports intermittent headaches. She reports no recent changes in her medication regimen, except for the initiation of Wellbutrin four months ago. She reports no use of estrogen or progesterone and confirms there is no possibility of . She has no personal history of pulmonary embolism. She recalls similar palpitations approximately 4 to 5 years ago, for which she wore a different monitor but did not receive any abnormal results. Yesterday, she almost passed out at work, so her sister brought her to the hospital. Yesterday, she had labs, EKG, and Holter monitor. Her primary care provider prescribed propranolol for her palpitations, but she has been unable to take it due to elevated blood pressure. Today, she appeared extremely pale and had persistent pain under her arm, leading her to leave work early on Thursday. Related Data Home Medications ?Medication ?Instructions ?Recorded ?Confirmed bupropion HCl 150 mg 24 hr tablet, 150 mg PO QAM #14 tabs 05/05/24 extended release (Wellbutrin XL) Previous Rx's ?Medication ?Instructions ?Recorded bupropion HCl 150 mg 24 hr tablet, 150 mg PO QAM #14 tabs 05/05/24 extended release (Wellbutrin XL) Allergies Allergy/AdvReac Type Severity Reaction Status Date / Time acetaminophen (From Percocet) Allergy Headache Verified 05/05/24 19:05 oxycodone (From Percocet) Allergy Headache Verified 05/05/24 19:05 General Stated Complaint: Chest Pain MARIKA: 3 Exam Narrative Exam Narrative: General Appearance: Normal. HEENT: Within normal limits. Cardiac rate rhythm within normal limits, no murmurs or rubs Respiratory: Within normal limits. No abdominal tenderness Skin: Warm and dry, no rash. Neurological: Normal. Alert and oriented x 4 Course Vital Signs Vital signs: Vital Signs Pulse 79 05/05/24 19:01 Respiratory Rate 16 05/05/24 19:01 Blood Pressure 110/71 05/05/24 19:01 Pulse Oximetry 96 05/05/24 19:01 Pulse 69 05/05/24 22:31 Pulse 74 05/05/24 22:31 Respiratory Rate 18 05/05/24 22:31 Respiratory Effort Normal 05/05/24 20:17 Respiratory Depth Normal 05/05/24 20:17 Respiratory Pattern Normal 05/05/24 20:17 Blood Pressure 97/50 L 05/05/24 22:31 Blood Pressure Mean 65 05/05/24 22:31 Blood Pressure Position Sitting 05/05/24 19:01 Pulse Oximetry 96 05/05/24 22:31 Oxygen Delivery Method Room Air 05/05/24 19:01 Oxygen Flow Rate 0 05/05/24 19:01 Lab/Test Results Lab/Test Results: Laboratory Tests Range/Units 05/05/24 05/05/24 20:00 20:10 WBC (4.4-10.8) 10^3/uL 7.15 RBC (3.93-5.22) 10^6/uL 4.32 Hgb (11.2-15.7) g/dL 13.9 Hct (36.0-46.0) % 41.3 MCV (80-95) fL 96 H MCH (27.0-33.0) pg 32.2 MCHC (32.0-36.0) % 33.7 RDW (11.7-14.6) % 12.2 Plt Count (130-400) 10^3/uL 200 MPV (8.0-11.0) fL 9.5 Immature Gran % % 0.1 Neutrophils % % 59.1 Lymphocytes % % 33.3 Monocytes % % 6.3 Eosinophils % % 0.8 Basophils % % 0.4 Nucleated RBC % (0.0-0.3) % 0.0 Absolute Neutrophils (1.2-6.7) 10^3/uL 4.22 Absolute Lymphocytes (1.2-3.4) 10^3/uL 2.38 Absolute Monocytes (0.1-0.8) 10^3/uL 0.45 Absolute Eosinophils (0.0-0.7) 10^3/uL 0.06 Absolute Basophils (0.0-0.2) 10^3/uL 0.03 D-Dimer (<500) ng/mlFEU 152 Sodium (136-145) mmol/L 143 Potassium (3.5-5.1) mmol/L 3.8 Chloride (98-107) mmol/L 109 H Carbon Dioxide (21.0-32.0) mmol/L 30.4 Anion Gap (3-11) mmol/L 3.6 BUN (7-18) mg/dL 6 L Creatinine (0.55-1.02) mg/dL 0.8 Est GFR (CKD-EPI 2020) (mL/min/1.73m2) 99.71 Glucose (74-106) mg/dL 95 Calcium (8.5-10.1) mg/dL 8.8 Magnesium (1.8-2.4) mg/dL 1.9 Total Bilirubin (0.2-1.0) mg/dL 1.36 H AST (15-37) U/L 12 L ALT (14-59) U/L 25 Alkaline Phosphatase (46-116) U/L 66 Troponin I (<or=51) ng/L 7 Total Protein (6.4-8.2) g/dL 6.7 Albumin (3.4-5.0) g/dL 4.2 Lipase (<78) U/L 24 Serum HCG, Qual Negative COVID-19 Source NASOPHARYNX SARS-CoV-2 (PCR) (Negative) Negative Influenza Type A (PCR) (Negative) Negative Influenza Type B (PCR) (Negative) Negative RSV (PCR) (Negative) Negative Medical Decision Making Initial Assessment: 34-year-old female presenting with palpitations and associated pain. Differential Diagnosis: - Palpitations: Considered due to increased frequency and associated pain. Plan includes re-evaluation of labs, checking magnesium levels, and referral to a derrick boat runner. - Pain: Associated with palpitations, occasionally sharp even in the absence of palpitations. No history of blood clots, high cholesterol, or high blood pressure. ED Course: - EKG, Holter monitor, labs, and thyroid function tests performed yesterday, all normal. - Blood pressure noted to be low at 89/48. - Heart rate fluctuating between 70 and 110 bpm. - Influenza and COVID-19 tests to be performed. - Re-evaluation of laboratory results from the previous day, including checking magnesium levels. Final Assessment: Patient presents with palpitations and associated pain. Initial tests including EKG, Holter monitor, and labs were normal. Blood pressure is low, and heart rate is fluctuating. Further evaluation includes rechecking labs and referral to a derrick boat runner. Clinical Impression: - Palpitations - Pain Disposition: - Follow-Up: Referral to a derrick boat runner for further evaluation and management. MDM Components Evaluation: - Number of Differential Diagnoses or Management Options: Palpitations, Pain - Amount and Complexity of Data Reviewed: EKG, Holter monitor, labs, thyroid function tests, re-evaluation of labs, influenza and COVID-19 tests - Risk of Complication and Morbidity or Mortality: Low blood pressure and fluctuating heart rate require careful management to avoid complications. Patient is on Wellbutrin and interestingly her symptoms started approximately 1 month after initiating Wellbutrin. I will taper patient off Wellbutrin and encouraged her to call her primary care physician to add on another antianxiety depressive at this time. Quality:SDOH Health Related Social Needs: No Data to Display PFSH All Active Problems (Updated 05/05/24 @ 22:16 by STEVE Gay) Heart palpitations (Acute) Social History Smoking/Tobacco Use Status: Never Smoking risk assessment performed?: Yes Alcohol Intake: never Substance use type: does not use
== END 2024-05-05 22:39 | disposition home or self-care (01) ==
PROVIDERS: Emergency Provider Physician Assistant; PCP Nurse Practitioner Family
DX: R00.2 Palpitations (principal); R55 Syncope and collapse
CPT/HCPCS: 80053; 83690; 87637; 93005; 96365; 99285; 71046; 83735; 84484; 84703; 85025; 85379; 93010; 99284